=== PATIENT | male | born 1965 | race Caucasian/White ===

== ENCOUNTER → 2018-08-02 | Outpatient (CLI) | payer BC ==
--- NOTE | 2018-08-02 16:49 | Diagnostic Imaging Report ---
INDICATION: Right foot pain. COMPARISON: None. FINDINGS: Three views of the right foot demonstrate no fracture or dislocation. Articular surfaces are normal. No bony erosion is seen. There is no foreign body. IMPRESSION: Negative right foot. Dictated by: Dictated on workstation # [id number]
== END ==
LOC: RAD FS 16:33
PROVIDERS: ATTEND Physician Assistant
DX: M79.671 Pain in right foot (principal)
CPT/HCPCS: 73630